=== PATIENT | male | born 1985 | race Caucasian/White ===

== ENCOUNTER 2018-05-23 17:24 | Emergency (ER) | payer SELFPAY ==
[~2018-05-23] VITALS: Ht 185.4 cm; Wt 79.5 kg
[~2018-05-23 17:24] MED LIST: CATAPRES 0.1MG0.1 MG PO; CELEBREX 200MG200 MG PO; CELEXA 20MG20 MG/TAB PO; NORCO 325 MG-51 TAB PO; OXY IR5 MG PO; PERCOCET 325 MG1 TA2 PO; PERCOCET 325 MG1 TAB PO; SUBOXONE 8 MG-21 TAB PO; VALIUM 10MG10 MG/TAB PO; XANAX 1MG1 MG PO; ZOFRAN 4MG T4 MG/TAB PO
[2018-05-23 17:30] VITALS: BP 140/91; PULSE 107; TEMP 97.5
[2018-05-23] MEDS ORDERED: NORCO 325 MG-51 TAB PO (17:48)
[2018-05-23] MEDS ORDERED: CEPHALEXIN500 M1 PO (17:48)
== END 2018-05-23 18:00 | disposition home or self-care (01) ==
LOC: COL.ER 17:24
DX: S70.361A Insect bite (nonvenomous), right thigh, initial encounter (principal); L03.115 Cellulitis of right lower limb; F17.210 Nicotine dependence, cigarettes, uncomplicated; W57.XXXA Bitten or stung by nonvenomous insect and other nonvenomous arthropods, initial encounter

== ENCOUNTER 2021-09-08 02:01 | Emergency (ER) | payer SELFPAY ==
[~2021-09-08] VITALS: Ht 185.4 cm; Wt 77.3 kg
[~2021-09-08 02:01] MED LIST changes: +CEPHALEXIN500 M1 PO
[2021-09-08 02:33] LABS: BASO # 0.1 K/mm3 (0.0-0.2); BASO % 0.3 % (0.0-2.0); EOS # 0.3 K/mm3 (0.0-0.7); EOS % 1.6 % (0-4.0); GRAN # 12.1 K/mm3 (1.4-6.5); GRAN % 79.7 % (42.2-75.2); HEMOGLOBIN 12.6 g/dl (13.5-18.0); LYMPH # 1.7 K/mm3 (1.2-3.4); LYMPH % 11.1 % (20.0-51.0); MEAN CELL VOLUME 93 fl (80.0-100.0); MEAN CORPUSCULAR HEMOGLOBIN 32 pg (27.0-31.0); MEAN CORPUSCULAR HGB CONC 35 g/dl (33.0-37.0); MEAN PLATELET VOLUME 9.9 fl (7.4-10.4); MONO # 1.1 K/mm3 (0.1-0.6); PLATELET COUNT 266 K/mm3 (130-400); RED BLOOD COUNT 3.93 M/mm3 (4.20-5.60)
[2021-09-08 02:36] LABS: HEMATOCRIT 36.5 % (42.0-52.0)
[2021-09-08 02:51] LABS: ALBUMIN 3.6 gm/dL (3.5-5.0); BILIRUBIN,TOTAL 0.4 mg/dL (0.2-1.2); C-REACTIVE PROTEIN 4.83 mg/dL (0.00-0.50); CALCIUM 9.1 mg/dL (8.4-10.2); CREATININE, serum 1.16 mg/dL (0.72-1.25); POTASSIUM 3.7 mmol/L (3.5-4.5); TOTAL PROTEIN 6.6 gm/dL (6.2-8.1)
[2021-09-08] MEDS ORDERED: DOXYCYCLINE 10100 MG PO (02:54)
[2021-09-08 03:25] VITALS: BP 118/79; PULSE 91; TEMP 98.6
== END 2021-09-08 03:25 | disposition home or self-care (01) ==
LOC: COL.ER 02:01
PROVIDERS: Emergency Medicine
DX: L03.115 Cellulitis of right lower limb (principal); F17.210 Nicotine dependence, cigarettes, uncomplicated
CPT/HCPCS: J0696; J1885

== ENCOUNTER 2021-09-10 17:25 | Emergency (ER) | payer SELFPAY ==
[~2021-09-10] VITALS: Ht 185.4 cm; Wt 79.5 kg
[~2021-09-10 17:25] MED LIST changes: +DOXYCYCLINE 10100 MG PO
[2021-09-10 19:36] LABS: BASO % 0.3 % (0.0-2.0); EOS # 0.3 K/mm3 (0.0-0.7); EOS % 2.9 % (0-4.0); GRAN # 9.5 K/mm3 (1.4-6.5); GRAN % 80.6 % (42.2-75.2); HEMOGLOBIN 12.5 g/dl (13.5-18.0); LYMPH # 1.2 K/mm3 (1.2-3.4); LYMPH % 10.4 % (20.0-51.0); MEAN CELL VOLUME 93 fl (80.0-100.0); MEAN CORPUSCULAR HEMOGLOBIN 32 pg (27.0-31.0); MEAN CORPUSCULAR HGB CONC 34 g/dl (33.0-37.0); MEAN PLATELET VOLUME 9.7 fl (7.4-10.4); MONO # 0.7 K/mm3 (0.1-0.6); MONO % 5.5 % (1.7-9.3); PLATELET COUNT 273 K/mm3 (130-400); REDCELL DISTRIBUTION WIDTH-CV 12.1 % (11.5-14.5)
[2021-09-10 19:50] LABS: C-REACTIVE PROTEIN 9.3 mg/dL (0.00-0.50); CALCIUM 9.9 mg/dL (8.4-10.2); CREATININE, serum 0.92 mg/dL (0.72-1.25); POTASSIUM 4.2 mmol/L (3.5-4.5)
[2021-09-10 20:15] LABS: HEMATOCRIT 36.3 % (42.0-52.0)
[2021-09-10] MEDS ORDERED: CEPHALEXIN500 M1 PO (21:46)
[2021-09-10] MEDS ORDERED: NORCO 325 MG-51 TAB PO (21:46)
[2021-09-10 22:07] VITALS: BP 131/70; PULSE 89; TEMP 98.7
== END 2021-09-10 22:07 | disposition home or self-care (01) ==
LOC: COL.ER 17:25
PROVIDERS: Nurse Practitioner Family
DX: L03.115 Cellulitis of right lower limb (principal)
CPT/HCPCS: J0696